=== PATIENT | female | born 1945 | race Caucasian/White ===

== ENCOUNTER → 2019-03-01 | Outpatient (CLI) | payer MEDICARE ==
[~2019-03-01] MED LIST: ALBUTEROL SULFATE 2.5 MG/3 ML NEBU. NEB ONE
--- NOTE | 2019-03-01 13:06 | RESP ---
DATE OF SERVICE: 03/01/2019 PULMONARY FUNCTION TESTS ATTENDING PHYSICIAN: Nidia Valente MD The patient's FVC was 1.57, which is 61% predicted; FEV1 1.0, which is 52% predicted. The FEV1/FVC ratio was reduced. YCA27-83 was 0.54, which is 33% predicted. A total lung capacity was 244% predicted and residual volume 520% predicted. There was an excellent response to bronchodilators with 27% improvement in FVC and 41% improvement in FEV1. Diffusion capacity was abnormally high. IMPRESSION: 1. Moderate to severe obstructive airway disease. 2. Excellent response to bronchodilators, suggesting bronchoreversibility/reactive airway disease. 3. Lung volumes consistent with air trapping and hyperinflation. 4. Increased diffusion capacity. LEENA CONRAD MD DR: ASHLEY/sangeetha JOB#: [id number] / [id number]
== END | disposition home or self-care (01) ==
LOC: PF 11:04
PROVIDERS: ATTEND Specialist
DX: J98.8 Other specified respiratory disorders (principal)
CPT/HCPCS: 94060; 94640; 94726; 94729; J7613